=== PATIENT | male | born 2000 | race Caucasian/White ===

== ENCOUNTER 2022-04-22 17:23 | Emergency (ER) | payer BC ==
[~2022-04-22] VITALS: Ht 193 cm; Wt 86.4 kg
[2022-04-22 17:32] VITALS: TEMP 98.4
[2022-04-22 18:52] VITALS: BP 128/83; PULSE 79
== END 2022-04-22 18:57 | disposition home or self-care (01) ==
LOC: COL.ER 17:23
DX: S01.81XA Laceration without foreign body of other part of head, initial encounter (principal); W10.9XXA Fall (on) (from) unspecified stairs and steps, initial encounter; W22.8XXA Striking against or struck by other objects, initial encounter; Y93.01 Activity, walking, marching and hiking